=== PATIENT | female | born 2000 | race Caucasian/White ===

== ENCOUNTER 2018-07-16 21:01 | Emergency (ER) | payer MEDICAID ==
[~2018-07-16] VITALS: Ht 162.6 cm; Wt 66.6 kg
[2018-07-16] MEDS ORDERED: YAZ1 TAB PO (21:13)
[2018-07-16 21:49] LABS: URINE BILIRUBIN - DIPSTICK NEGATIVE (NEGATIVE); URINE BLOOD DIPSTICK NEGATIVE (NEGATIVE); URINE COLOR YELLOW; URINE GLUCOSE - DIPSTICK NEGATIVE (NEGATIVE); URINE KETONE NEGATIVE (NEGATIVE); URINE LEUK ESTERASE NEGATIVE (NEGATIVE); URINE NITRITE - DIPSTICK NEGATIVE (Negative); URINE PROTEIN - DIPSTICK NEGATIVE (NEG-TRACE); URINE SPECIFIC GRAVITY 1.025; URINE UROBILINOGEN - DIPSTICK 0.2 E.U./dL (0.2)
[2018-07-16] MEDS ORDERED: ZITHROMAX250 MG PO (22:21)
[2018-07-16] MEDS ORDERED: NAPROSYN500 MG PO (22:22)
[2018-07-16 22:33] VITALS: BP 131/80
== END 2018-07-16 22:34 | disposition home or self-care (01) ==
LOC: ED 21:01
PROVIDERS: Emergency Medicine
DX: J02.9 Acute pharyngitis, unspecified (principal); R50.9 Fever, unspecified; R11.0 Nausea

== ENCOUNTER 2018-12-14 01:41 | Emergency (ER) | payer SELFPAY ==
[~2018-12-14] VITALS: Ht 162.6 cm; Wt 66.0 kg
[~2018-12-14 01:41] MED LIST: NAPROSYN500 MG PO; YAZ1 TAB PO; ZITHROMAX250 MG PO
[2018-12-14 01:45] VITALS: BP 124/88
== END 2018-12-14 02:25 | disposition home or self-care (01) | DRG 605 ==
LOC: ED 01:41
PROC: 0HQKXZZ Repair Right Lower Leg Skin, External Approach (ICD-10-PCS; principal; 2018-12-14)
DX: S81.811A Laceration without foreign body, right lower leg, initial encounter (principal); W25.XXXA Contact with sharp glass, initial encounter; Y93.89 Activity, other specified; Y92.89 Other specified places as the place of occurrence of the external cause; Y99.0 Civilian activity done for income or pay

== ENCOUNTER 2019-06-01 20:44 | Emergency (ER) | payer SELFPAY ==
[~2019-06-01] VITALS: Ht 162.6 cm; Wt 60.0 kg
[2019-06-01 21:58] LABS: URINE BILIRUBIN - DIPSTICK NEGATIVE (NEGATIVE); URINE BLOOD DIPSTICK MODERATE (NEGATIVE); URINE COLOR YELLOW; URINE GLUCOSE - DIPSTICK NEGATIVE (NEGATIVE); URINE KETONE NEGATIVE (NEGATIVE); URINE LEUK ESTERASE NEGATIVE (NEGATIVE); URINE NITRITE - DIPSTICK NEGATIVE (Negative); URINE PROTEIN - DIPSTICK NEGATIVE (NEG-TRACE); URINE UROBILINOGEN - DIPSTICK 0.2 E.U./dL (0.2)
[2019-06-01 22:08] LABS: URINE SQUAMOUS EPITHELIAL CELL FEW EPI/hpf (0-FEW)
[2019-06-01] MEDS ORDERED: PHENERGAN25 MG/TAB PO (22:17)
[2019-06-01] MEDS ORDERED: IMITREX100 M1 PO (22:17)
[2019-06-01 22:30] VITALS: BP 146/73
== END 2019-06-01 23:36 | disposition home or self-care (01) | DRG 103 ==
LOC: ED 20:44
PROVIDERS: Family Medicine
DX: G43.909 Migraine, unspecified, not intractable, without status migrainosus (principal)

== ENCOUNTER 2021-05-02 11:45 | Emergency (ER) | payer OTHER ==
[~2021-05-02] VITALS: Ht 162.6 cm; Wt 72.0 kg
[~2021-05-02 11:45] MED LIST changes: +IMITREX100 M1 PO; +PHENERGAN25 MG/TAB PO
[2021-05-02] MEDS ORDERED: DOXYCYCLINE100 MG PO (13:23)
[2021-05-02] MEDS ORDERED: METRONIDAZOLE500 MG PO (13:23)
[2021-05-02 13:45] VITALS: BP 121/70
== END 2021-05-02 13:45 | disposition home or self-care (01) | DRG 605 ==
LOC: ED 11:45
DX: S50.872A Other superficial bite of left forearm, initial encounter (principal); W55.01XA Bitten by cat, initial encounter; Y93.01 Activity, walking, marching and hiking; Y92.830 Public park as the place of occurrence of the external cause

== ENCOUNTER 2021-05-05 15:23 | Emergency (ER) | payer OTHER ==
[~2021-05-05] VITALS: Ht 162.6 cm; Wt 80.0 kg
[~2021-05-05 15:23] MED LIST changes: +DOXYCYCLINE100 MG PO; +METRONIDAZOLE500 MG PO
[2021-05-05 16:55] VITALS: BP 126/75
== END 2021-05-05 16:55 | disposition home or self-care (01) | DRG 951 ==
LOC: ED 15:23
PROC: 3E0234Z Introduction of Serum, Toxoid and Vaccine into Muscle, Percutaneous Approach (ICD-10-PCS; principal; 2021-05-05)
DX: Z23 Encounter for immunization (principal); S51.852A Open bite of left forearm, initial encounter; W55.01XA Bitten by cat, initial encounter

== ENCOUNTER 2021-09-02 19:45 | Emergency (ER) | payer OTHER ==
[~2021-09-02] VITALS: Ht 160 cm; Wt 75.0 kg
[2021-09-02 22:42] VITALS: BP 129/72
[2021-09-02 22:45] VITALS: BP 107/75
[2021-09-02] MEDS ORDERED: SERTRALINE50 MG PO (22:53)
[2021-09-02] MEDS ORDERED: SUMATRIPTAN25 MG PO (22:54)
[2021-09-02 23:00] VITALS: BP 100/83
[2021-09-02 23:15] VITALS: BP 117/68
[2021-09-02] MEDS ORDERED: NAPROXEN500 MG PO (23:17)
[2021-09-02 23:31] VITALS: BP 108/74
[2021-09-02 23:34] VITALS: BP 108/74
== END 2021-09-02 23:43 | disposition home or self-care (01) | DRG 563 ==
LOC: ED 19:45
DX: S93.401A Sprain of unspecified ligament of right ankle, initial encounter (principal); X50.0XXA Overexertion from strenuous movement or load, initial encounter